=== PATIENT | female | born 1990 | race Two or more races ===

== ENCOUNTER 2021-12-12 07:58 | Emergency (ER) | payer OTHER ==
[~2021-12-12] VITALS: Ht 157.5 cm; Wt 72.6 kg
[2021-12-12] MEDS ORDERED: LANTUS SOL100 UNIT/1 SQ (08:03)
[2021-12-12] MEDS ORDERED: HUMALOG100 UNIT/2 SQ (08:04)
[2021-12-12] MEDS ORDERED: PRENA1 CHEW TA1.4 MG PO (08:04)
== END 2021-12-12 12:06 | disposition home or self-care (01) ==
LOC: ER 07:58
DX: O20.9 Hemorrhage in early pregnancy, unspecified (principal); Z3A.01 Less than 8 weeks gestation of pregnancy; O24.111 Pre-existing type 2 diabetes mellitus, in pregnancy, first trimester